=== PATIENT | male | born 2000 | race Hispanic/Latino ===

== ENCOUNTER 2023-08-06 11:52 | Emergency (ER) | payer OTHER, SELFPAY ==
[2023-08-06 12:00] VITALS: BP 148/65; PULSE 100; RESP 18; TEMP 36.4; O2SAT 99
--- NOTE | 2023-08-06 12:27 | ED.GENADULT ---
HPI - General Adult General Chief complaint: Ear Stated complaint: r ear pain Time Seen by Provider: 08/06/23 13:47 History of Present Illness HPI narrative: Gino Lanier is a 23 y/o male who presents wt complaints of decreased hearing to his right ear that started 1 year ago. Denies any pain to his ear/ Denies noticing any drainage from his ear - he has not had his ear looked at until today. Denies any fever/chills/ cough/ SOB Related Data Allergies Allergy/AdvReac Type Severity Reaction Status Date / Time No Known Allergies Allergy Verified 08/06/23 12:03 Review of Systems Review of Systems: All systems reviewed & are unremarkable except as noted in HPI and below Exam Const: General: healthy appearing HENMT: Head: normal to inspection Ears: external ears normal Face/Nose/Sinus: Normal external nose present Face and sinus: normal facial exam Mouth: Yes Normal oral and palatal mucosa present Eyes: Conjunctivae: conjunctivae normal Pupils: Equal, round and reactive pupils present EOM: EOMs intact bilaterally Neck: Neck: normal visual inspection Chest: Chest palpation & inspection: normal inspection of the chest Resp: Effort & Inspection: normal respiratory effort Auscultation: clear to auscultation bilaterally Cardio: Rate: regular rate Rhythm: regular rhythm GI: GI Palp: Yes Soft to palpation Skin: General skin exam: normal color Rashes: no rashes Neuro: General: patient oriented x3 and moves all extremities Course Vital Signs Vital signs: Vital Signs Temperature 36.4 C 08/06/23 12:00 Pulse Rate 100 08/06/23 12:00 Respiratory Rate 18 08/06/23 12:00 Blood Pressure 148/65 H 08/06/23 12:00 Pulse Oximetry 99 08/06/23 12:00 Temperature 36.4 C 08/06/23 12:00 Pulse Rate 100 08/06/23 12:00 Respiratory Rate 18 08/06/23 12:00 Blood Pressure 148/65 H 08/06/23 12:00 Pulse Oximetry 99 08/06/23 12:00 Medical Decision Making [facility] Narrative Medical decision making narrative: Patient noted to have impacted cerumen to the left ear Right TM cloudy / no erythema or pain noted symptoms have been persistent for one year No mastoid tenderness/ fevers/ swelling noted Plan to d/c home with steroid pack/ PO Zyrtec and Debrox for the left ear ENT referral as needed Follow up with PCP Strict return precautions provided. Medical Records Medical records reviewed: Yes I reviewed the external patient's medical records. Vital Signs Vital Signs: Vital Signs Temperature 36.4 C 08/06/23 12:00 Pulse Rate 100 08/06/23 12:00 Respiratory Rate 18 08/06/23 12:00 Blood Pressure 148/65 H 08/06/23 12:00 Pulse Oximetry 99 08/06/23 12:00 Temperature 36.4 C 08/06/23 12:00 Pulse Rate 100 08/06/23 12:00 Respiratory Rate 18 08/06/23 12:00 Blood Pressure 148/65 H 08/06/23 12:00 Pulse Oximetry 99 08/06/23 12:00 Vitals reviewed by me. Discharge Plan Discharge Clinical Impression: Acute seasonal allergic rhinitis Chronic YUE (middle ear effusion) Qualifiers: Laterality: right Qualified Code(s): H65.491 - Other chronic nonsuppurative otitis media, right ear Patient Disposition: Home, Self-Care Condition: Stable Instructions: Antibiotic Form Additional Instructions: Continue to take the Zyrtec once daily Start the Methylprednisolone steroid pack as ordered Start using the Ear drops to the left ear as ordered to help alleviate the wax Follow up with ENT as discussed Return to the ED for any worsening symptoms or concerns. Prescriptions: New Clinere Ear Wax Removal 6.5 % drops 5 drp LEFT EAR Q12H 4 Days Qty: 15 0RF methylprednisolone [Methylpred DP] 4 mg tablets,dose pack See Rx Instructions .ROUTE .COMPLEX Qty: 21 0RF Rx Instructions: orally per package directions cetirizine [Zyrtec] 10 mg tablet 10 mg PO DAILY PRN (Reason: allergy symptoms) Qty: 30 0RF Follow-up/Referrals: James Wong MD [P
== END 2023-08-06 13:56 | disposition home or self-care (01) ==
PROVIDERS: Emergency Provider Nurse Practitioner Family
DX: H65.491 Other chronic nonsuppurative otitis media, right ear (principal); J30.2 Other seasonal allergic rhinitis
CPT/HCPCS: 99283

== ENCOUNTER 2023-10-10 20:23 | Emergency (ER) | payer OTHER, SELFPAY ==
[2023-10-10 20:31] VITALS: BP 132/114; PULSE 118; RESP 20; TEMP 36.6; O2SAT 100
[2023-10-10 21:15] LABS: Basophils Percent Auto 0.7 % (0.2-1.2); Eosinophils Absolute Auto 0.1 K/mm3 (0-0.3); Hematocrit 48.2 % (42.0-52.0); Hemoglobin 16.1 g/dL (14.0-18.0); Immature Granulocyte Absolute 0.02 K/mm3 (0.00-0.031); Immature Granulocyte Percent A 0.3 % (0-0.5); Lymphocytes Absolute Auto 1.69 K/mm3 (0.9-3.2); Lymphocytes Percent Auto 28.5 % (18.3-44.2); Mean Corpuscular HGB Conc 33.4 g/dl (32-36); Mean Corpuscular Hemoglobin 28.7 pg (26-34); Mean Corpuscular Volume 85.9 fl (80-100); Mean Platelet Volume 9.7 fl (7.4-10.4); Monocytes Absolute Auto 0.6 K/mm3 (0.1-0.6); Monocytes Percent Auto 9.8 % (2.6-8.5); Neutrophils Absolute Auto 3.5 K/mm3 (1.3-6.7); Neutrophils Percent Auto 59.7 % (45.5-73.1); Platelet Count Result 265 k/mm3 (150-375); Red Blood Count 5.61 M/mm3 (4.6-6.20); Red Cell Distribution Width 12.9 % (11.5-14.5); White Blood Count 5.9 K/mm3 (4.5-10.0)
[2023-10-10 21:22] LABS: Alanine Aminotransferase 25 U/L (6-50); Albumin Level 4.8 g/dL (3.5-5.1); Alkaline Phosphatase 113 U/L (38-126); Anion Gap 8 mmol/L (8-16); Aspartate Amino Transferase 27 U/L (17-59); Bilirubin,Total 0.6 mg/dL (0.2-1.3); Blood Urea Nitrogen 11 mg/dL (9-20); Calcium 9.4 mg/dL (8.4-10.2); Carbon Dioxide 28 mmol/L (22-30); Chloride 105 mmol/L (98-107); Estimated CRCL calculation 139 ml/min; Estimated Glomerular Filt Rate > 60; Glucose 90 mg/dL (65-110); Potassium 3.6 mmol/L (3.4-5.0); Prothrombin Time 13.7 Seconds (11.1-14.7); Sodium 141 mmol/L (137-145)
[2023-10-10 21:23] LABS: Partial Thromboplastin Time 33.8 Seconds (22.3-36.8)
--- NOTE | 2023-10-10 23:24 | ED.GENADULT ---
HPI - General Adult General Chief complaint: GI Bleed Stated complaint: blood in stool Time Seen by Provider: 10/10/23 22:21 Source: patient Mode of arrival: ambulatory Limitations: no limitations History of Present Illness HPI narrative: This is a 23-year-old male who presents to the ED with chief complaint of intermittent rectal bleeding for the past couple months. Reports he had initial episodes in the distant past and was told he may have anal fissures. He reports these issues had self resolved until couple of months ago. The unsure of any trigger for the bleeding. He feels that happened at random. He denies any significant rectal pain. Related Data Allergies Allergy/AdvReac Type Severity Reaction Status Date / Time No Known Allergies Allergy Verified 10/10/23 20:34 Review of Systems Review of Systems: All systems as dictated in HPI Exam Narrative: GENERAL: Well-appearing, well-nourished, and in no acute distress. HEAD: Normocephalic, atraumatic. EYES: PERRLA and EOMI. ENT: Nares clear, no rhinorrhea or epistaxis. Mucous membranes moist. Oropharynx without tonsillar hypertrophy exudate or other lesions. NECK: Supple. No adenopathy or masses. CHEST: No respiratory distress. Clear to auscultation. No wheezes rales or rhonchi HEART: Regular rate and rhythm. No murmur heard. Normal peripheral pulses. ABDOMEN: Soft, nontender, nondistended, normal active bowel sounds. MSK: Normal range of motion. No edema. SKIN: Warm, dry, no rash. NEURO: Alert and oriented x3. No focal deficits. PSYCH: Normal mood and affect. : Rectal exam: Questionable anal fissure to the anterior midline. No external hemorrhoids noted. No obvious bleeding. Course Vital Signs Vital signs: Vital Signs Temperature 97.8 F 10/10/23 20:31 Pulse Rate 118 H 10/10/23 20:31 Respiratory Rate 20 10/10/23 20:31 Blood Pressure 132/114 H 10/10/23 20:31 Pulse Oximetry 100 10/10/23 20:31 Oxygen Delivery Room Air 10/10/23 20:31 Temperature 97.8 F 10/10/23 20:31 Pulse Rate 75 10/10/23 23:29 Respiratory Rate 16 10/10/23 23:29 Blood Pressure 137/89 10/10/23 23:29 Pulse Oximetry 99 10/10/23 23:29 Oxygen Delivery Room Air 10/10/23 20:31 Medical Decision Making MDM Narrative Medical decision making narrative: This is a 23-year-old male who presents to the ED with chief complaint of bright red rectal bleeding intermittently for the past couple of months. Vitals are normal. Exam shows possible anal fissure to the anterior midline. No external hemorrhoids noted. Lab work is unremarkable. Hemoglobin and hematocrit are normal. Discussed with patient that he will likely need to see a surgeon. Anusol prescription given. Advise the patient to follow-up with his PCP and that he will likely need to see a surgeon for this. Pt will be discharged in stable condition. Return precautions given and supportive measures discussed. Pt is understanding and agreeable with plan for discharge and follow-up with PCP. Vital Signs Vital Signs: Vital Signs Temperature 97.8 F 10/10/23 20:31 Pulse Rate 118 H 10/10/23 20:31 Respiratory Rate 20 10/10/23 20:31 Blood Pressure 132/114 H 10/10/23 20:31 Pulse Oximetry 100 10/10/23 20:31 Oxygen Delivery Room Air 10/10/23 20:31 Temperature 97.8 F 10/10/23 20:31 Pulse Rate 75 10/10/23 23:29 Respiratory Rate 16 10/10/23 23:29 Blood Pressure 137/89 10/10/23 23:29 Pulse Oximetry 99 10/10/23 23:29 Oxygen Delivery Room Air 10/10/23 20:31 Lab Data 10/10/23 21:04 10/10/23 21:04 Labs: Lab Results 10/10/23 Range/Units 21:04 WBC 5.9 (4.5-10.0) K/mm3 RBC 5.61 (4.6-6.20) M/mm3 Hgb 16.1 (14.0-18.0) g/dL Hct 48.2 (42.0-52.0) % MCV 85.9 (80-100) fl MCH 28.7 (26-34) pg MCHC 33.4 (32-36) g/dl RDW 12.9 (11.5-14.5) % Plt Count 265 (150-375) k/mm3 MPV 9.7 (7.4-10.4) fl Im
[2023-10-10 23:29] VITALS: BP 137/89; PULSE 75; RESP 16; O2SAT 99
== END 2023-10-10 23:52 | disposition home or self-care (01) ==
LOC: ANHED 23:44
PROVIDERS: Emergency Medicine; Emergency Provider Physician Assistant
DX: K62.5 Hemorrhage of anus and rectum (principal)
CPT/HCPCS: 36415; 80053; 85025; 85610; 85730; 86850; 86900; 86901; 99283